=== PATIENT | male | born 1940 | race Hispanic/Latino ===

== ENCOUNTER 2024-05-29 08:00 | Emergency (ER) | payer MEDICARE ==
[~2024-05-29] VITALS: Ht 165.1 cm; Wt 59.0 kg
[2024-05-29] MEDS ORDERED: IOPAMIDOL 370 MG/ML 100 ML INFUS..BTL INJ ONE (09:08)
[2024-05-29 09:27] LABS: BASOPHILS % 0.3 % (0.0-1.0); EOSINOPHILS # (AUTO) 0.1 (0.0-0.4); EOSINOPHILS % 0.7 % (0.0-6.0); HEMATOCRIT 33.1 % (38.2-49.6); HEMOGLOBIN 10.6 g/dL (14.0-18.0); LYMPHOCYTES # (AUTO) 0.8 (1.0-3.2); LYMPHOCYTES % 9.2 % (18.0-39.1); MEAN CORPUSCULAR HEMOGLOBIN 29.7 pg (28-32); MEAN CORPUSCULAR VOLUME 92.7 fL (81-99); MONOCYTES # (AUTO) 0.6 (0.2-0.8); MONOCYTES % 6.7 % (4.4-11.3); NEUTROPHILS # (AUTO) 7.5 (2.1-6.9); NEUTROPHILS % 82.3 % (38.7-80.0); PLATELET COUNT 208 x10e3/uL (140-360); RED BLOOD COUNT 3.57 x10e6/uL (4.3-5.7); RED CELL DISTRIBUTION WIDTH 12.5 % (11.7-14.4); WHITE BLOOD COUNT 9.14 x10e3/uL (4.8-10.8)
[2024-05-29 09:44] LABS: INR 0.9; PROTHROMBIN TIME 12.7 seconds (11.9-14.5)
[2024-05-29 09:45] LABS: PARTIAL THROMBOPLASTIN TIME 30.4 seconds (23.8-35.5)
[2024-05-29 09:53] LABS: ALANINE AMINOTRANSFERASE 25 IU/L (0-55); ALBUMIN 4.3 g/dL (3.5-5.0); ALBUMIN/GLOBULIN RATIO 1.3 (0.8-2.0); ALKALINE PHOSPHATASE 77 IU/L (40-150); ANION GAP 14.4 mmol/L (8-16); BILIRUBIN,TOTAL 0.5 mg/dL (0.2-1.2); BLOOD UREA NITROGEN 15 mg/dL (7-26); BUN/CREATININE RATIO 13 (6-25); CALCIUM 9.1 mg/dL (8.4-10.2); CARBON DIOXIDE 24 mmol/L (22-29); CHLORIDE 104 mmol/L (98-107); CREATINE KINASE 170 IU/L (30-200); CREATININE, SERUM 1.19 mg/dL (0.72-1.25); EST GLOMERULAR FILTRATION RATE 61 ML/MIN (>=60); GLUCOSE 228 mg/dL (74-118); POTASSIUM 4.4 mmol/L (3.5-5.1); SODIUM 138 mmol/L (136-145); TOTAL PROTEIN 7.7 g/dL (6.5-8.1)
[2024-05-29 09:59] LABS: TROPONIN I < 0.001 ng/mL (0-0.300)
[2024-05-29] MEDS: ACETAMINOPHEN 1000 MG/100 ML IV STA (10:43)
[2024-05-29 11:15] VITALS: BP 158/55; PULSE 69
[2024-05-29] MEDS ORDERED: HYDROCODON-ACE1 EA11 PO (12:40)
[2024-05-29 12:45] VITALS: PULSE 79
[2024-05-29] MEDS: HYDROCODONE/APAP 5MG-325MG TAB PO ONE (13:18)
[2024-05-29 13:40] VITALS: RESP 16; TEMP 99; O2SAT 100
== END 2024-05-29 13:59 | disposition home or self-care (01) ==
LOC: ER 08:44
DX: M79.652 Pain in left thigh (principal); S82.492A Other fracture of shaft of left fibula, initial encounter for closed fracture; S22.42XA Multiple fractures of ribs, left side, initial encounter for closed fracture; V03.10XA Pedestrian on foot injured in collision with car, pick-up truck or van in traffic accident, initial encounter; Y92.488 Other paved roadways as the place of occurrence of the external cause; I10 Essential (primary) hypertension; E11.65 Type 2 diabetes mellitus with hyperglycemia; E78.5 Hyperlipidemia, unspecified; R91.1 Solitary pulmonary nodule; M47.814 Spondylosis without myelopathy or radiculopathy, thoracic region; M47.816 Spondylosis without myelopathy or radiculopathy, lumbar region; R94.31 Abnormal electrocardiogram [ECG] [EKG]
CPT/HCPCS: 36415; 70450; 71260; 72125; 72128; 72131; 73552; 73562; 73590; 73610; 74177; 80053; 82550; 84484; 85025; 85610; 85730; 87040; 93005; 99284; J0131; Q9967